=== PATIENT | male | born 1960 | race Caucasian/White ===

== ENCOUNTER 2016-09-27 12:45 | Day surgery (SDC) | payer OTHER ==
[~2016-09-27] VITALS: Ht 177.8 cm; Wt 99.8 kg
[~2016-09-27 12:45] MED LIST: 0.9% Sodium Chloride 1,000 ML IV SCH; ASPI-973 PO; DULO60CA42 PO; GEMF600T3 PO; PREG300C PO; Sodium Chloride LOK Flush 10 mL Syringe IV PRN; fentaNYL-PF 50 mCg/mL 2 mL Inj IVPUSH PRN
[2016-09-27 12:53] VITALS: BP 144/80; PULSE 56; RESP 14; O2SAT 98
[2016-09-27 14:00] VITALS: BP 125/83; PULSE 52; RESP 16; O2SAT 100
[2016-09-27 14:10] VITALS: BP 138/78; PULSE 53; RESP 16; O2SAT 99
--- NOTE | 2016-09-27 14:29 | ENDO ---
[address] [address] ENDOSCOPY PROCEDURE PATIENT: KENIA MCPHERSON : 1960 MR#: [id number] ADMIT: 09/27/2016 JOB ID: [id number] DATE: 09/27/2016 PRIMARY PROVIDER: Hugo Jimenez M.D. PROCEDURE: Colonoscopy with biopsy. INDICATIONS: A 56-year-old male who reports for colon cancer screening. EQUIPMENT: PCF H 190 DL. SEDATION: None. COMPLICATIONS: None identified. BOWEL PREPARATION: Fair, adequate examination. PROCEDURAL INFORMATION: After the risks and benefits were explained, written and verbal informed consent was obtained. The patient was brought into the endoscopy suite and placed into the left lateral decubitus position. Sedation was not pursued as the patient had been sipping water on the way into the endoscopy check in. He elected to proceed without sedation. Digital rectal examination was accomplished. No significant pathology appreciated. Mild internal hemorrhoids. The scope was introduced into the rectum and advanced to the cecum as identified by the appendiceal orifice and ileocecal valve. The scope was slowly withdrawn to carefully examine the mucosa for any defects or lesions. Multiple direct views were made through the dentate line for exclusion of pathology. The colon was decompressed. The scope removed from the patient who tolerated the procedure well. FINDINGS: Some very scattered scant diverticula in the left colon. There was a slightly unusual looking fold in the cecum. I suspect this is just normal underlying mucosa but we took a biopsy to exclude any element of adenomatous change. The remainder of the colon appeared to be within normal limits. ENDOSCOPIC DIAGNOSES: 1. Mildly irregular fold in the cecum. 2. Diverticulosis. 3. Mild internal hemorrhoids. RECOMMENDATIONS: 1. Await histopathology. 2. If there are no adenomatous features on the cecal biopsy, repeat colonoscopy will be suggested for 10 years' time. 3. On the other hand, if there are any adenomatous features, then early repeat colonoscopy will be advised within the next 3-4 months.
--- NOTE | 2016-09-29 17:46 | PATH ---
SURGICAL PATHOLOGY Attending Physician:Amanda Antonio CASE STATUS: Signed Out PATIENT NAME: KENIA MCPHERSON PID: [id number] : 1960 DATE COLLECTED:09/27/2016 00:00 SPECIMEN: Colon, Biopsy CLINICAL HISTORY: 1). CECAL FOLD BIOPSY FINAL DIAGNOSIS: 1.CECAL FOLD, BIOPSY: - COLONIC MUCOSA WITH HYPERPLASTIC FEATURES CONSTENT WITH POLYPOID REDUNDANCY. - NEGATIVE FOR DYSPLASIA AND MALIGNANCY. ICD10 Z12 GROSS DESCRIPTION: The specimen is received in one formalin filled container labeled with the patient's name, sublabeled "cecal fold" and consists of a 0.2 x 0.2 x 0.2 CM portion of tissue which is entirely submitted in one cassette. 09/28/2016DC MICRO DESCRIPTION: See diagnosis. ICD-9 CODES: CPT CODES: 1: 68722 Electronically Signed Out Ilir Mcgraw MD [facility] Pathology [facility] [address], [place] [address] Technical component performed at [facility], [address] [place] [address] Ave[address], [place], [address]
== END 2016-09-27 23:59 | disposition home or self-care (01) ==
LOC: END 12:45
PROVIDERS: ATTEND Internal Medicine Gastroenterology
DX: Z12.11 Encounter for screening for malignant neoplasm of colon (principal); K57.30 Diverticulosis of large intestine without perforation or abscess without bleeding; K64.8 Other hemorrhoids; E78.2 Mixed hyperlipidemia; G83.10 Monoplegia of lower limb affecting unspecified side; M54.16 Radiculopathy, lumbar region; Z79.82 Long term (current) use of aspirin; Z79.899 Other long term (current) drug therapy
CPT/HCPCS: 45380; 99153; G0500; J7030